=== PATIENT | male | born 1955 | race Caucasian/White ===

== ENCOUNTER 2017-01-05 18:55 | Emergency (ER) | payer OTHER ==
[~2017-01-05] VITALS: Ht 172.7 cm; Wt 110.0 kg
[2017-01-05 18:59] VITALS: Ht 172.7 cm; Wt 110.0 kg
== END 2017-01-05 22:10 | disposition left against medical advice (07) ==
LOC: E/R 18:55
DX: Z53.21 Procedure and treatment not carried out due to patient leaving prior to being seen by health care provider (principal)